=== PATIENT | male | born 1950 | race Caucasian/White ===

== ENCOUNTER → 2023-04-17 10:59 | Outpatient (CLI) | payer MEDICARE, OTHER, SELFPAY ==
[2023-04-21 11:25] LABS: PSA Free % 21.7 % (.)
== END ==
PROVIDERS: Referring Provider Family Medicine; Visit Provider Family Medicine
DX: N40.0 Benign prostatic hyperplasia without lower urinary tract symptoms (principal); R97.20 Elevated prostate specific antigen [PSA]
CPT/HCPCS: 36415; 84153; 84154

== ENCOUNTER → 2023-05-15 07:43 | Outpatient (CLI) | payer MEDICARE, OTHER, SELFPAY ==
--- NOTE | 2023-05-15 | DI.MRI.S_ITS ---
PROCEDURE: MR PELIS WO/W CON INDICATIONS: ELEVATED AND RISING PSA TECHNIQUE: Coronal HASTE, axial T1 FSE with fat saturation, 3-plane nonbreath-hold T2 FSE. After the administration of contrast, dynamic axial, delayed axial and coronal VIBE or 2-D FLASH with fat saturation through the pelvis. Diffusion weighted imaging and ADC was performed. COMPARISON: None. FINDINGS: Image quality: Diffusion weighted and dynamic contrast enhanced images are diagnostic. Prostate: Gland size is 6.4 x 4.4 x 4.8 cm; ellipsoid gland volume is 70 mL. Lesion 1: Location: Left peripheral zone to transition zone, mid gland to apex, on axial series 4, image 15 and sagittal series 6, image 16. Size: 2.3 x 2.8 cm. T2W signal: Markedly hypointense, non circumscribed. DWI signal: Markedly hyperintense. ADC signal: Markedly hypointense. Enhancement: Yes. Extracapsular extension: Yes, extension along the posterior margin, abutting the rectum (series 4, image 18 PI-RADS score: 5 Lesion 2: Location: Right peripheral zone, mid gland to apex, on axial series 4, image 15 and sagittal series 6, image 9. Size: 1.0 x 2.0 cm. T2W signal: Hypointense. DWI signal: Markedly hyperintense. ADC signal: Markedly hypointense. Enhancement: Yes. Extracapsular extension: Broad-based capsular contact. PI-RADS score: 5 Genitourinary system: Bladder wall thickness is normal. Distal ureters are non distended. Bowel and peritoneum: No pathologic free pelvic fluid. Inferior colon and small bowel loops are normal in caliber. Colonic diverticulosis without evidence of diverticulitis. Nodes and vessels: Left external and left common iliac chain lymphadenopathy. For instance, the 1.4 centimeter left common iliac chain node (series 21, image 23) and 1.2 centimeter left external iliac chain node (series 21, image 75). Borderline enlarged right internal iliac chain node measuring 0.8 centimeter short axis (series 21, image 39) Soft tissues: Small inguinal hernias containing fat Bones: Marrow demonstrates normal overall signal, without lesions to suggest metastases. IMPRESSION: PI-RADS 5 lesions, as above. Extraprostatic extension is present. Pelvic adenopathy, as above. No aggressive osseous abnormality. Dictated by: Saulo Glass M.D. on 05/15/2023 at 10:34 Approved by: Saulo Glass M.D. on 05/15/2023 at 10:41
== END ==
PROVIDERS: PCP Family Medicine; Referring Provider Urology; Visit Provider Urology
DX: N42.9 Disorder of prostate, unspecified (principal); R97.20 Elevated prostate specific antigen [PSA]; R59.0 Localized enlarged lymph nodes
CPT/HCPCS: 72197